=== PATIENT | male | born 1950 | race Caucasian/White ===

== ENCOUNTER 2020-10-04 08:52 | Outpatient (RCR) | payer MEDICARE, SELFPAY | END 2020-10-04 08:55 | disposition home or self-care (01) | LOC: PT 08:52 | PROVIDERS: Visit Provider Family Medicine | DX: L03.116 Cellulitis of left lower limb (principal); L03.115 Cellulitis of right lower limb | CPT/HCPCS: 97163 ==

== ENCOUNTER → 2020-10-04 11:33 | Outpatient (CLI) | payer MEDICARE, SELFPAY | PROVIDERS: Visit Provider Family Medicine | DX: L03.116 Cellulitis of left lower limb (principal) | CPT/HCPCS: 87070; 87077; 87186; 87205 ==